=== PATIENT | female | born 1985 | race African-American/Black ===

== ENCOUNTER 2020-12-09 19:16 | Emergency (ER) | payer OTHER ==
[~2020-12-09] VITALS: Ht 175.3 cm; Wt 77.1 kg
[2020-12-09 19:50] VITALS: BP 134/75
[2020-12-09] MEDS ORDERED: TRAMADOL HCL 50 MG TABLET ONE (20:06)
[2020-12-09] MEDS ORDERED: TRAMADOL HCL 50 MG TABLET PO ONE (20:30)
[2020-12-09] MEDS ORDERED: TRAM50TA2 PO (21:18)
[2020-12-09] MEDS ORDERED: IBUP-1955 PO (21:18)
== END 2020-12-09 21:53 | disposition home or self-care (01) ==
LOC: ER 19:21
DX: S63.691A Other sprain of left index finger, initial encounter (principal); Z41.1 Encounter for cosmetic surgery; Z98.890 Other specified postprocedural states; Z88.6 Allergy status to analgesic agent; Z91.013 Allergy to seafood; Z79.899 Other long term (current) drug therapy; W50.0XXA Accidental hit or strike by another person, initial encounter; Y93.89 Activity, other specified; Y92.89 Other specified places as the place of occurrence of the external cause; Y99.8 Other external cause status
CPT/HCPCS: 73140-TC; 84703-TC